=== PATIENT | female | born 1970 | race Caucasian/White ===

== ENCOUNTER 2017-01-06 20:18 | Emergency (ER) | payer SELFPAY ==
[~2017-01-06 20:18] MED LIST: FERR324T4 PO
[2017-01-06 20:19] VITALS: BP 132/75; PULSE 123; RESP 16; TEMP 98.9; O2SAT 100
== END 2017-01-06 21:50 | disposition left against medical advice (07) ==
LOC: NED 20:18
DX: R10.9 Unspecified abdominal pain (principal); Z53.21 Procedure and treatment not carried out due to patient leaving prior to being seen by health care provider
CPT/HCPCS: 99281